=== PATIENT | female | born 1985 | race Caucasian/White ===

== ENCOUNTER 2023-05-25 17:43 | Emergency (ER) | payer MEDICARE, MEDICAID, SELFPAY ==
[2023-05-25 17:45] VITALS: BP 144/121; PULSE 99; RESP 18; TEMP 36.9; O2SAT 96
--- NOTE | 2023-05-25 17:45 | RT.EKG_ITS ---
APPROVED REPORT Exam: Resting ECG Reason for Exam: chest pain Patient Location: E HR:83 bpm ECG Measurements Heart Rate 83 AXIS UT 137 P 70 QRSd 84 QRS 73 QT 361 T 60 QTc 424 Conclusion Sinus rhythm...normal P axis, V-rate 60- 99 sinus rhtyhm, normal axis, normal intervals, non ischemic
[2023-05-25 18:04] LABS: Abs Immature Grans 0.02 10^3/uL (0.0-0.06); Absolute Basophil Count 0.03 10^3/uL (0.0-0.2); Absolute Eosinophil Count 0.06 10^3/uL (0.0-0.7); Absolute Lymphocyte Count 1.54 10^3/uL (1.2-3.4); Absolute Monocyte Count 0.68 10^3/uL (0.1-0.8); Absolute Neutrophil Count 5.54 10^3/uL (1.2-6.7); Basophils % 0.4; Eosinophils % 0.8; HCT 46.8 % (36.0-46.0); HGB 15.6 g/dL (11.2-15.7); Immature Grans % 0.3; Lymphocytes % 19.6; MCH 30.8 pg (27.0-33.0); MCHC 33.3 % (32.0-36.0); MCV 93 fL (80-95); MPV 9.2 fL (8.0-11.0); Monocytes % 8.6; Neutrophils % 70.3; Platelet Count 236 10^3/uL (130-400); RBC 5.06 10^6/uL (3.93-5.22); RDW 12.5 % (11.7-14.6); RDW-SD 42.6 fL; WBC 7.87 10^3/uL (4.4-10.8)
[2023-05-25 18:05] LABS: Bilirubin Negative (Negative); Blood Negative (Negative); Clarity Clear (Clear); Glucose Negative (Negative); Ketones 40 mg/dL (Negative); Leukocyte Esterase Negative (Negative); Nitrite Negative (Negative); Specific Gravity 1.015 (1.005-1.025)
--- NOTE | 2023-05-25 18:15 | W.ED.GENAD ---
Discharge Plan Disposition Patient Disposition: Home Condition: Stable Discharge Details Clinical Impression: Pneumonia Primary Care Provider: Angy Zaidi ED Provider: Trudi Tsai Home Meds and New Rx's Prescriptions: New doxycycline hyclate 100 mg tablet 100 mg PO BID 10 Days Qty: 20 0RF Continued ibuprofen 600 mg tablet 600 mg PO DAILY albuterol sulfate [ProAir HFA] 90 mcg/actuation HFA aerosol inhaler 2 puff inhalation Q4H PRN No Action acetylcysteine 600 mg capsule 600 mg PO BID clindamycin HCl 300 mg capsule 300 mg PO .1 prior to dental diphenhydramine HCl [Allergy (diphenhydramine)] 25 mg tablet 25 mg PO DIRECTED lidocaine-collagen 2 % gel 1 applic topical TID sumatriptan succinate 100 mg tablet 100 mg PO ONCE ascorbic acid (vitamin C) 1,000 mg tablet 1 g PO DAILY valacyclovir 1 gram tablet 1,000 mg PO DAILY PRN melatonin 3 mg capsule 3 mg PO HS PRN cyclobenzaprine 10 mg tablet 5 mg PO TID PRN Hold Instructions: Pt Stopped/Never Started ketorolac 10 mg tablet 10 mg PO Q6H PRN clobetasol 0.05 % solution 1 applic topical BID PRN Hold Instructions: Pt Stopped/Never Started clotrimazole 1 % cream 1 applic topical BID Hold Instructions: Pt Stopped/Never Started Discharge Instructions Instructions: Pneumonia (ED) Additional Instructions: Chest x-ray shows left-sided pneumonia. COVID flu RSV negative. Labs are largely unremarkable you are slightly dehydrated. Please take the antibiotic with yogurt or probiotic daily. Follow up with primary care provider in 3-5 days. Return to ED or new port surgery sooner if any worsening vomiting, fever, worsening pain or concerns. Increase oral fluids. Continue to keep your follow-up appointment with general surgery regarding your gallbladder. Referrals: Angy Zaidi [Primary Care Provider] - 5 days Discharge Data Discharge Date/Time-TO BE ENTERED AT DEPARTURE: 05/25/23 19:46 Medical Decision Making 37-year-old female history of dwarfism presents to the ER with a chief complaint of sore throat, cough, increased fatigue. Patient reports she has been having increased sleep for the last week. She was having constipation and has been taking MiraLAX which now she is having bowel movements. She also reports some right flank pain which she has been seen recently at the end of March at [facility] for. She is scheduled to get her gallbladder out June 10 at [facility]. She is not vaccinated for COVID or flu. She does have slightly erythemic posterior oropharynx, no exudate, uvula is midline. Other past medical history includes restless leg syndrome, hypochondroplasia, chronic pain neuropathy, panic disorder, lumbar radiculopathy, asthma diverticulitis, ADHD and anxiety major depression. Surgical history includes appendectomy tonsillectomy, hip replacement knee arthroplasty. She is also had a knee replacement. On exam she does have mild tenderness in the right upper quadrant and some right CVA tenderness. Workup ordered including CBC CMP lipase, urine urinalysis chest x-ray and Fluvid swab. EKG and troponin ordered due to some midepigastric abdominal pain. Normal sinus rhythm, no ectopy. CBC largely within normal limits no leukocytosis hematocrit 46.8, potassium 3.4, ketones 40, patient given a liter of normal saline COVID flu RSV negative. Chest x-ray does showed possible infiltrate on the left. Will give doxycycline, a DuoNeb and plan for discharge. Discussed deferring CT at this time due to recent CT imaging and scheduled for Naty cystectomy in May. Patient remained hemodynamically stable throughout the remainder of her stay. Alert and oriented x 4. Imaging Data Radiologic Study: Imaging: X-Ray Radiologist's impression: XR CHEST 2V PA LATERAL EXAM: XR CHEST 2V PA LATERAL CLINICAL HISTORY: Cough,. TECHNIQUE: 2D digital imaging was performed. COMPARISON: No exams were available for comparison FINDINGS: 2 views: Heart size is normal. The mediastinum is not widened. Subtle patchy infiltrate in the left mid lung field. No pleural effusions. No pneumothorax. No fractures. IMPRESSION: Subtle increased markings in the in the mid left lung field. Possibly mild infiltrate. There are no pleural effusions. There is scoliosis convex right. HPI General Mode of arrival: ambulatory. Date/Time Provider Initiated Documentation: 05/25/23 17:51. Limitations to Documentation: no limitations. Information obtained by: patient, family, RN notes reviewed and old records reviewed. HPI Narrative: 37-year-old female history of dwarfism presents to the ER with a chief complaint of sore throat, cough, increased fatigue. Patient reports she has been having increased sleep for the last week. She was having constipation and has been taking MiraLAX which now she is having bowel movements. She also reports some right flank pain which she has been seen recently at the end of March at [facility] for. She is scheduled to get her gallbladder out June 10 at [facility]. She is not vaccinated for COVID or flu. She does have slightly erythemic posterior oropharynx, no exudate, uvula is midline. Other past medical history includes restless leg syndrome, hypochondroplasia, chronic pain neuropathy, panic disorder, lumbar radiculopathy, asthma diverticulitis, ADHD and anxiety major depression. Surgical history includes appendectomy tonsillectomy, hip replacement knee arthroplasty. She is also had a knee replacement. On exam she does have mild tenderness in the right upper quadrant and some right CVA tenderness. Related Data Home Medications Medication Instructions Recorded Confirmed acetylcysteine 600 mg capsule 600 mg PO BID 08/14/20 05/25/23 albuterol sulfate 90 mcg/actuation 2 puff inhalation Q4H PRN 08/14/20 05/25/23 aerosol inhaler (ProAir HFA) ascorbic acid (vitamin C) 1,000 mg 1 g PO DAILY 08/14/20 05/25/23 tablet clindamycin HCl 300 mg capsule 300 mg PO .1 prior to dental 08/14/20 05/25/23 diphenhydramine HCl 25 mg tablet 25 mg PO DIRECTED 08/14/20 05/25/23 (Allergy (diphenhydramine)) ibuprofen 600 mg tablet 600 mg PO DAILY 08/14/20 05/25/23 lidocaine-collagen 2 % topical gel 1 applic topical TID 08/14/20 05/25/23 sumatriptan succinate 100 mg tablet 100 mg PO ONCE 08/14/20 05/25/23 clobetasol 0.05 % scalp solution 1 applic topical BID PRN 03/17/22 05/25/23 clotrimazole 1 % topical cream 1 applic topical BID 03/17/22 05/25/23 cyclobenzaprine 10 mg tablet 5 mg PO TID PRN 03/17/22 05/25/23 ketorolac 10 mg tablet 10 mg PO Q6H PRN 03/17/22 05/25/23 melatonin 3 mg capsule 3 mg PO HS PRN 03/17/22 05/25/23 valacyclovir 1 gram tablet 1,000 mg PO DAILY PRN 03/17/22 05/25/23 doxycycline hyclate 100 mg tablet 100 mg PO BID 10 days #20 tabs 05/25/23 Previous Rx's Medication Instructions Recorded doxycycline hyclate 100 mg tablet 100 mg PO BID 10 days #20 tabs 05/25/23 Allergies Allergy/AdvReac Type Severity Reaction Status Date / Time Penicillins Allergy Mild rash Verified 05/25/23 17:53 General Stated Complaint: Abd Prob SILVA: 3 Review of Systems All systems reviewed & are unremarkable except as noted in HPI and below Constitutional Constitutional: Reports as per HPI, Reports daytime sleepiness, Reports lethargy and Reports poor appetite ENT Ears, Nose, Mouth, and Throat: Reports sore throat Respiratory Respiratory: Reports cough and Reports wheezing (Expiratory wheezes noted in the right middle and lower lobes) Gastrointestinal Gastrointestinal: Reports as per HPI, Reports abdominal pain, Reports constipation and Denies vomiting Genitourinary Genitourinary: Reports pelvic pain (Right groin pain, denies dysuria, no rash hurts to touch) and Reports flank pain Musculoskeletal Musculoskeletal: Reports back pain Allergic/Immunologic Allergic/Immunologic: Reports wheezing (Expiratory wheezes noted in the right middle and lower lobes) PFSH All Active Problems (Updated 05/25/23 @ 19:19 by Trudi Tsai NP) Pneumonia (Acute) 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 (Acute) Balance problem (Acute) Cramps of left lower extremity (Acute) Migraine headache without aura (Acute) Medical History Restless leg syndrome Morbid obesity with BMI of 40.0-44.9, adult Hypochondroplasia Herpes zoster Fatigue Digestive problems Chronic pain Axonal polyneuropathy Abnormal weight gain Tendinitis of left rotator cuff Pain of both hip joints Panic disorder 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 H/O backache Lumbar radiculopathy Ankle joint effusion Alopecia Perirectal abscess Diverticulitis Asthma Migraine Insomnia ADHD Anxiety disorder Recurrent major depression Surgical History S/P section S/P foot joint surgery multiple bilateral for clubbed feet Status post right hip replacement 2010 History of appendectomy History of total left hip arthroplasty 2010 S/P total knee arthroplasty L 2014, R 2015 History of tonsillectomy H/O LEEP Hx of colonoscopy History of esophagogastroduodenoscopy (EGD) Artificial knee joint present Family History Paternal Grandfather Lung cancer Paternal Grandmother Diabetes Maternal Grandmother Breast cancer Alcohol abuse Cancer Mother Bipolar 1 disorder Endometriosis Depression Father Hypertension History of thyroid disorder Hyperlipidemia Maternal Grandfather Cancer Social History Smoking/Tobacco Use Status: Never Smokeless tobacco user: other Smoking risk assessment performed?: Yes Alcohol Intake: current Alcohol Intake frequency: a few times a month Drug use: Daily Substance use type: former substance user Date of last use: cocaine and marijuana Household members: children Housing: apartment Number of Children: 1 current occupation: Community Service Coordinatior; middle school technology teacher Pets and animals: Yes Pets and animals: cat(s) Current gender identity: female What type of physical activity do you participate in: yoga Seatbelt use: always Do you feel safe at home: Yes Do you feel safe in your relationship?: Yes Additional Social history: unable to assess alone Exam Narrative Exam Narrative: Constitutional: Alert and oriented x3. Appears stated age. body habitus consistent with dwarfisim. Head: Normocephalic, no trauma. Eyes: Pupils PERRL, Red reflex noted, EOM's intact. Eyelids symmetrical without lesions, discharge, or swelling. ENT: Bilateral TM's WNL, External ear normal to inspection, no mastoid TTP, swelling, or erythema, Nasal turbinates WNL, no nasal discharge. Normal dentition, Posterior pharynx slightly erythemic bilaterally, uvula midline,no exudate. Chest: RRR, Normal S1, S2, distal pulses intact. Resp: Lungs expiratory wheezes noted to right middle and lower lobes, mild rhonchi noted at base left lower lobe. Abdomen: Soft, non-distended, Normoactive bowel sounds all 4 quads.Tender with palpation mildly to the right upper quadrant, right CVA tenderness with palpation. No masses no guarding. No distention. Musculoskeletal: Normal gait, 5/5 strength to all four extremities. Skin: No suspicious rashes or lesions. Capillary refill less than 2 sec. Neurologic: Cranial nerves II-XII intact. Alert and oriented x 3. Motor: No deficits noted. Sensory: Intact bilaterally all 4 extremities. Hematologic/Lymphatic: No ecchymosis, no lymphadenopathy. Course Vital Signs Vital signs: Vital Signs Temperature 36.9 C 05/25/23 17:45 Pulse 99 H 05/25/23 17:45 Respiratory Rate 18 05/25/23 17:45 Blood Pressure 144/121 H 05/25/23 17:45 Pulse Oximetry 96 05/25/23 17:45 Temperature 36.9 C 05/25/23 17:45 Temperature Source Tympanic 05/25/23 17:45 Pulse 99 H 05/25/23 17:45 Respiratory Rate 18 05/25/23 17:45 Respiratory Effort Normal 05/25/23 17:49 Blood Pressure 144/121 H 05/25/23 17:45 Blood Pressure Position Sitting 05/25/23 17:45 Pulse Oximetry 96 05/25/23 17:45 Oxygen Delivery Method Room Air 05/25/23 17:45 Oxygen Flow Rate 0 05/25/23 17:45 Lab/Test Results Lab/Test Results: Laboratory Tests Range/Units 05/25/23 05/25/23 05/25/23 17:52 17:55 17:57 WBC (4.4-10.8) 10^3/uL 7.87 RBC (3.93-5.22) 10^6/uL 5.06 Hgb (11.2-15.7) g/dL 15.6 Hct (36.0-46.0) % 46.8 H MCV (80-95) fL 93 MCH (27.0-33.0) pg 30.8 MCHC (32.0-36.0) % 33.3 RDW (11.7-14.6) % 12.5 Plt Count (130-400) 10^3/uL 236 MPV (8.0-11.0) fL 9.2 Immature Gran % 0.3 Neutrophils % 70.3 Lymphocytes % 19.6 Monocytes % 8.6 Eosinophils % 0.8 Basophils % 0.4 Nucleated RBC % (0.0-0.3) % 0.0 Absolute Neutrophils (1.2-6.7) 10^3/uL 5.54 Absolute Lymphocytes (1.2-3.4) 10^3/uL 1.54 Absolute Monocytes (0.1-0.8) 10^3/uL 0.68 Absolute Eosinophils (0.0-0.7) 10^3/uL 0.06 Absolute Basophils (0.0-0.2) 10^3/uL 0.03 Troponin I Cancelled Lipase Cancelled Urine Color (Yellow) Yellow Urine Clarity (Clear) Clear Urine pH (5-8) 8.0 Ur Specific [place] (1.005-1.025) 1.015 Urine Protein (Negative) mg/dL Negative Urine Ketones (Negative) mg/dL 40 H Urine Blood (Negative) Negative Urine Nitrite (Negative) Negative Urine Bilirubin (Negative) Negative Urine Urobilinogen (Up to 0.2) mg/dL 1.0 H Ur Leukocyte Esterase (Negative) Negative Urine Glucose (Negative) mg/dL Negative
[2023-05-25 18:27] LABS: ALT 19 U/L (14-59); AST 14 U/L (15-37); Albumin 4.4 g/dL (3.4-5.0); Alkaline Phosphatase 73 U/L (46-116); Anion Gap 12.2 mmol/L (3-11); BUN 4 mg/dL (7-18); Bilirubin, Total 0.7 mg/dL (0.2-1.0); CO2 26.8 mmol/L (21.0-32.0); CREATININE 0.7 mg/dL (0.55-1.02); Calcium 9.6 mg/dL (8.5-10.1); Chloride 101 mmol/L (98-107); Estimated GFR 115.59 (mL/min/1.73m2); Glucose 94 mg/dL (74-106); Lipase 24 U/L (16-77); Potassium 3.4 mmol/L (3.5-5.1); Sodium 140 mmol/L (136-145); Total Protein 8.6 g/dL (6.4-8.2); Troponin I < 50 ng/L (<or=60)
--- NOTE | 2023-05-25 18:32 | DI.RAD_ITS ---
Exam(s) XR CHEST 2V PA LATERAL EXAM: XR CHEST 2V PA LATERAL CLINICAL HISTORY: Cough,. TECHNIQUE: 2D digital imaging was performed. COMPARISON: No exams were available for comparison FINDINGS: 2 views: Heart size is normal. The mediastinum is not widened. Subtle patchy infiltrate in the left mid lung field. No pleural effusions. No pneumothorax. No fra ctures. IMPRESSION: Subtle increased markings in the in the mid left lung field. Possibly mild infiltrate. There are no pleural effusions. There is scoliosis convex right. DATA REPOSITORY: RADIATION DOSE DELIVERED:
[2023-05-25] MEDS: Normal Saline 1,000 ML 1000 ML IV (18:34)
[2023-05-25 19:06] LABS: COVID-19 PCR Negative (Negative); Influenza A PCR Negative (Negative); Influenza B PCR Negative (Negative); RSV PCR Negative (Negative); Source NASOPHARYNX
[2023-05-25 19:22] VITALS: RESP 5
[2023-05-25] MEDS: Albuterol/Ipratropium 3 ML UPD VIAL UPD (19:22)
[2023-05-25] MEDS: Doxycycline Hyclate 100 MG CAP PO (19:22)
--- NOTE | 2023-05-26 07:46 | NUR.NOTE ---
Accessed chart to determine orders for EKG and to determine whether or not one needs to be cancelled. Nursing Note:
== END 2023-05-25 19:46 | disposition home or self-care (01) ==
PROVIDERS: Emergency Provider Registered Nurse Emergency; PCP Physician Assistant Medical
DX: M54.50 Low back pain, unspecified (principal); J18.9 Pneumonia, unspecified organism; R11.0 Nausea; R05.9 Cough, unspecified; J02.9 Acute pharyngitis, unspecified; R53.83 Other fatigue
CPT/HCPCS: 36415; 80053; 83690; 87637; 93005; 99283; 71046; 81003; 83735; 84484; 85025; 93010; J7620

== ENCOUNTER → 2024-06-20 08:15 | Outpatient (BNVA) | payer MEDICARE, MEDICAID, SELFPAY | PROVIDERS: PCP Physician Assistant Medical; Referring Provider Physician Assistant Medical; Visit Provider Physician Assistant Surgical | DX: R05.3 Chronic cough (principal); J47.9 Bronchiectasis, uncomplicated; Q78.8 Other specified osteochondrodysplasias; F12.90 Cannabis use, unspecified, uncomplicated | CPT/HCPCS: 99215 ==

== ENCOUNTER 2024-07-03 01:08 | Outpatient (CLI) | payer MEDICARE, MEDICAID, SELFPAY ==
[2024-07-03] MEDS: Inhaler, Assist Device 1 EACH MC (12:04)
[2024-07-03] MEDS: Methacholine 100 MG VIAL IH (12:04)
[2024-07-03] MEDS: Albuterol HFA 18 GM 200 PUFF INH IH (12:05)
--- NOTE | 2024-07-04 16:04 | W.PFT ---
Date of service: 07/03/24 Time of Service: 10:04 Pulmonary Function Test Result Indications: Bronchiectasis Interpretation Spirometry: There was a 21% decline in FEV1 with administration of 2.0mg/mL methacholine. No airflow limitation at baseline. No significant decline in FVC with supine positioning. Impression Normal supine spirometry with a positive methacholine challenge. Clinical Correlation therefore is recommended.
== END 2024-07-03 01:09 | disposition home or self-care (01) ==
LOC: RT 01:08
PROVIDERS: PCP Physician Assistant Medical; Visit Provider Student in an Organized Health Care Education/Training Program
DX: J47.9 Bronchiectasis, uncomplicated (principal)
CPT/HCPCS: 94060; 94070; 94010; J7674

== ENCOUNTER → 2024-07-24 14:44 | Outpatient (BNVA) | payer MEDICARE, MEDICAID, SELFPAY | PROVIDERS: PCP Physician Assistant Medical; Referring Provider Physician Assistant Medical; Visit Provider Physician Assistant Surgical | DX: J47.9 Bronchiectasis, uncomplicated (principal); F12.90 Cannabis use, unspecified, uncomplicated; J45.909 Unspecified asthma, uncomplicated; Q77 Osteochondrodysplasia with defects of growth of tubular bones and spine | CPT/HCPCS: 99214 ==

== ENCOUNTER → 2024-10-24 14:11 | Outpatient (BNVA) | payer MEDICARE, MEDICAID, SELFPAY | PROVIDERS: PCP Physician Assistant Medical; Referring Provider Physician Assistant Medical; Visit Provider Physician Assistant Surgical | DX: J47.9 Bronchiectasis, uncomplicated (principal); F12.90 Cannabis use, unspecified, uncomplicated; J45.909 Unspecified asthma, uncomplicated; Q77 Osteochondrodysplasia with defects of growth of tubular bones and spine | CPT/HCPCS: 99214 ==

== ENCOUNTER → 2025-05-01 09:38 | Outpatient (BNVA) | payer MEDICARE, MEDICAID, SELFPAY | PROVIDERS: PCP Physician Assistant Medical; Referring Provider Physician Assistant Medical; Visit Provider Physician Assistant Surgical | DX: J47.9 Bronchiectasis, uncomplicated (principal); J45.909 Unspecified asthma, uncomplicated; F12.90 Cannabis use, unspecified, uncomplicated; Q77 Osteochondrodysplasia with defects of growth of tubular bones and spine; R05.3 Chronic cough | CPT/HCPCS: 99214; 36415 ==

== ENCOUNTER 2025-05-01 10:32 | Outpatient (REF) | payer MEDICARE, MEDICAID, SELFPAY ==
[2025-05-01 11:32] LABS: Abs Immature Grans 0.01 10^3/uL (0.0-0.06); HCT 40.1 % (36.0-46.0); HGB 13.6 g/dL (11.2-15.7); Immature Grans % 0.2 %; MCH 31.4 pg (27.0-33.0); MCHC 33.9 % (32.0-36.0); MCV 93 fL (80-95); MPV 9.5 fL (8.0-11.0); Platelet Count 204 10^3/uL (130-400); RBC 4.33 10^6/uL (3.93-5.22); RDW 12.5 % (11.7-14.6); RDW-SD 43.0 fL; WBC 5.86 10^3/uL (4.4-10.8)
[2025-05-01 11:44] LABS: ESR 6 mm/hr (0-20)
[2025-05-01 11:58] LABS: C-Reactive Protein < 0.50 mg/dL (<=0.50)
[2025-05-01 12:03] LABS: TSH (W/Ref FT4) 1.22 uIU/mL (0.55-4.78)
[2025-05-01 21:14] LABS: T3,Free 3.6 pg/mL (2.8-5.3)
== END 2025-05-01 10:33 | disposition home or self-care (01) ==
LOC: LBN 10:32
PROVIDERS: PCP Physician Assistant Medical; Visit Provider Physician Assistant Surgical
DX: E03.9 Hypothyroidism, unspecified (principal); J45.909 Unspecified asthma, uncomplicated; Q77 Osteochondrodysplasia with defects of growth of tubular bones and spine
CPT/HCPCS: 85652; 82785; 84443; 84481; 85025; 86140